=== PATIENT | female | born 1995 | race Caucasian/White ===

== ENCOUNTER 2017-11-24 07:58 | Emergency (ER) | payer BC, OTHER ==
[~2017-11-24] VITALS: Ht 167.6 cm; Wt 90.4 kg
[~2017-11-24 07:58] MED LIST: ABILIFY10 MG; BACTRIM DS TAB1 EACH PO; BENTYL 20 MG TA20 M1 PO; COUMADIN 10MG T10 M1 PO; DOXYCYCLINE 10100 MG PO; ENOXAPARIN30 MG/0.1 SUBQ; ENOXAPARIN30 MG/0.3 SUBQ; ENOXAPARIN80 MG/0.1 SUBQ; FLOMAX0.4 MG PO; HYDROCODONE-AP1 EAC6 PO; HYDROCODONE-APA1 TA1 PO; HYOSCYAMINE0.375 M2 PO; LEXAPRO 10 MG T10 M1 PO; MECLIZINE 25 MG25 M1 PO; MICONAZOLE NITR45 G1 VAG; PREDNISONE 20 M20 M1 PO; TEGRETOL XR200 MG; TRILEPTAL 300300 MG PO; WELLBUTRIN SR150 MG; ZOFRAN ODT4 MG PO; [UNRECOGNIZED DRUG - REMARK]
[2017-11-24 08:10] LABS: URINE BILIRUBIN NEGATIVE (Negative); URINE BLOOD 3+ (Negative); URINE CLARITY CLEAR; URINE COLOR YELLOW; URINE GLUCOSE-RANDOM NEGATIVE (Negative); URINE KETONES NEGATIVE (Negative); URINE LEUKOCYTES-REFLEX TRACE (Negative); URINE NITRITE-REFLEX NEGATIVE (Negative); URINE PROTEIN TRACE (Negative); URINE SPECIFIC GRAVITY >= 1.030 (1.005-1.030); URINE UROBILINOGEN 0.2 E.U./dl (0.2-1.0)
[2017-11-24 08:17] LABS: ABSOLUTE EOSINOPHILS 0.1 thou/uL (0.0-0.7); ABSOLUTE LYMPHOCYTES 1.8 thou/uL (0.8-5.3); ABSOLUTE MONOCYTES 0.6 thou/uL (0.0-1.2); ABSOLUTE NEUTROPHILS 2.9 thou/uL (1.6-8.1); BASOPHILS 0.6 %; EOSINOPHILS 2.2 %; HEMATOCRIT 41.6 % (37.0-47.0); HEMOGLOBIN 14.2 gm/dL (12.0-15.0); LYMPHOCYTES 33.1 %; MCH 30.8 pg (26.0-34.0); MCHC 34.1 g/dL (28.0-37.0); MCV 90.3 fL (80.0-100.0); MONOCYTES 10.6 %; MPV 9.3 fl. (7.2-11.1); NUCLEATED RBCS 0 /100WBC; PLATELET COUNT* 161 thou/uL (150-400); POLYS 53.5 %; RDW-CV 12.4 % (10.5-14.5); WBC 5.4 thou/uL (4.0-11.0)
[2017-11-24 08:24] LABS: CALCIUM 9.1 mg/dL (8.5-10.1); CREATININE 0.8 mg/dL (0.6-1.3); POTASSIUM 3.9 mmol/L (3.5-5.1)
[2017-11-24 08:25] LABS: AMP/METHAMP Negative (Negative); BARBITURATES Negative (Negative); BENZODIAZEPINES Negative (Negative); COCAINE Negative (Negative); METHADONE Negative (Negative); OPIATES Negative (Negative); PCP Negative (Negative); THC POSITIVE (Negative)
[2017-11-24] MEDS ORDERED: ALDACTONE25 MG PO (08:33)
[2017-11-24 08:40] LABS: ALBUMIN 3.9 g/dL (3.4-5.0); TOTAL BILIRUBIN 0.6 mg/dL (<0.1-1.0); TOTAL PROTEIN 7.6 g/dL (6.4-8.2)
[2017-11-24 08:44] LABS: CASTS None Seen /LPF (None Seen); CRYSTALS None Seen /LPF (None Seen); MUCUS 4-6 Moderate strn/LPF (None Seen); SQUAMOUS 0-3 Few /LPF (0-3); URINE WBC-REFLEX 6-15 Few /HPF (0-5)
[2017-11-24 08:45] LABS: ACETAMINOPHEN < 2 ug/mL (10-30); ALCOHOL < 10 mg/dL (<10)
[2017-11-24] MEDS ORDERED: DEPO-PROVER150 MG/M1 IM (08:57)
--- NOTE | 2017-11-24 16:32 | EKG ---
[place] [address] ELECTROCARDIOGRAM REPORT Name: MICKY FLORES Room: [facility]#: [id number] Admission: 11/24/17 Attend Phys: Discharge: Date of : [birth year] Report #: [id number] THIS REPORT FOR: //name// [facility] ED Test Date: 2017-11-24 Test Time: 08:34:23 Pat Name: MICKY FLORES Department: Room: Gender: F [employer]: : 1995 Requested By: Chago Suarez Order Number: [id number] MD: James Boyer Measurements Intervals [place] Rate: 81 P: 16 ND: 141 QRS: -14 QRSD: 87 T: 20 QT: 364 QTc: 423 Interpretive Statements Sinus rhythm Borderline T wave abnormalities Compared to ECG 09/18/2015 11:51:53 T-wave abnormality now present Electronically Signed On 11-24-2017 16:31:49 CDT by James Boyer [email or web address] <ELECTRONICALLY SIGNED> By: James Boyer MD, [facility] 11/24/17 1631 0834 0834 James Boyer MD, FACC /EPI
[2017-11-25 08:05] VITALS: BP 126/70
== END 2017-11-25 08:05 ==
LOC: M.ERS 07:58
PROVIDERS: Emergency Medicine Emergency Medical Services
DX: T50.902A Poisoning by unspecified drugs, medicaments and biological substances, intentional self-harm, initial encounter (principal); R45.851 Suicidal ideations; F31.9 Bipolar disorder, unspecified; F17.210 Nicotine dependence, cigarettes, uncomplicated; Z88.1 Allergy status to other antibiotic agents; Y92.89 Other specified places as the place of occurrence of the external cause

== ENCOUNTER 2019-08-16 17:18 | Emergency (ER) | payer OTHER ==
[~2019-08-16] VITALS: Ht 162.6 cm; Wt 104.3 kg
[~2019-08-16 17:18] MED LIST changes: +ALDACTONE25 MG PO; +DEPO-PROVER150 MG/M1 IM
[2019-08-16 17:58] LABS: INFLUENZA A ANTIGEN Negative (Negative); INFLUENZA B ANTIGEN Negative (Negative)
[2019-08-16] MEDS ORDERED: PREDNISONE 20 M20 MG PO (19:32)
[2019-08-16] MEDS ORDERED: SPACE CHAMBER1 EACH INH (19:32)
[2019-08-16] MEDS ORDERED: PROAIR HFA8.5 GM INH (19:32)
[2019-08-16 19:51] VITALS: BP 122/76
== END 2019-08-16 19:51 | disposition home or self-care (01) ==
LOC: M.ERS 17:18
PROVIDERS: Nurse Practitioner Psychiatric/Mental Health
DX: J20.9 Acute bronchitis, unspecified (principal); F17.210 Nicotine dependence, cigarettes, uncomplicated; Z88.1 Allergy status to other antibiotic agents; Z90.89 Acquired absence of other organs

== ENCOUNTER 2020-03-19 09:30 | Emergency (ER) | payer OTHER, MEDICAID ==
[~2020-03-19] VITALS: Ht 162.6 cm; Wt 97.5 kg
[~2020-03-19 09:30] MED LIST changes: +PREDNISONE 20 M20 MG PO; +PROAIR HFA8.5 GM INH; +SPACE CHAMBER1 EACH INH
[2020-03-19] MEDS ORDERED: SERTRALINE HCL100 MG PO (09:46)
[2020-03-19] MEDS ORDERED: ANXIETY MED (09:46)
[2020-03-19] MEDS ORDERED: KEFLEX500 M1 PO (09:51)
[2020-03-19] MEDS ORDERED: BACTRIM DS TAB1 EACH PO (09:51)
[2020-03-19] MEDS ORDERED: NORCO 5-325 TA1 EAC2 PO (09:51)
[2020-03-19 10:01] VITALS: BP 132/80
== END 2020-03-19 10:01 | disposition home or self-care (01) ==
LOC: M.ERS 09:30
DX: L73.2 Hidradenitis suppurativa (principal); F17.210 Nicotine dependence, cigarettes, uncomplicated; F31.9 Bipolar disorder, unspecified; F41.9 Anxiety disorder, unspecified; Z79.899 Other long term (current) drug therapy; Z88.1 Allergy status to other antibiotic agents; Z90.89 Acquired absence of other organs